=== PATIENT | male | born 1985 | race Caucasian/White ===

== ENCOUNTER 2021-08-19 19:24 | Emergency (ER) | payer OTHER ==
[2021-08-19 19:38] VITALS: BP 133/93; PULSE 74
[2021-08-19] MEDS ORDERED: Lidocaine 1% 30 ML SDV INJECT ONE (19:54)
[2021-08-19] MEDS ORDERED: Silver Nitrate Applicator Each TOP ONE (20:27)
== END 2021-08-19 20:51 | disposition home or self-care (01) ==
LOC: DL.ED 19:24
DX: S61.203A Unspecified open wound of left middle finger without damage to nail, initial encounter (principal); I10 Essential (primary) hypertension; W26.8XXA Contact with other sharp object(s), not elsewhere classified, initial encounter; Y92.009 Unspecified place in unspecified non-institutional (private) residence as the place of occurrence of the external cause
CPT/HCPCS: 64450; 99282-25; 99283